=== PATIENT | female | born 2000 | race African-American/Black ===

== ENCOUNTER → 2024-08-20 08:12 | Outpatient (CLI) | payer OTHER, MEDICAID, SELFPAY ==
--- NOTE | 2024-08-20 08:13 | DI.US.S_ITS ---
PROCEDURE: US OB >= 14 WEEKS FETUS INDICATIONS: ANATOMY SCAN OUTSIDE/PRIOR DATING DATA: Last menstrual period (LMP): 03/19/2024. LMP-based estimated date of delivery (GERMAN): 12/24/2024. First dating scan (date and location): 06/08/2024. Estimated date of delivery (GERMAN) from first dating scan: 01/08/2025. The calculations are made using the sonographic GERMAN of 01/08/2025. TECHNIQUE: Real-time scanning was performed of the fetus, with image documentation and biometric measurements. Endovaginal scanning: Not performed COMPARISON: None. FINDINGS: General: A single living intrauterine gestation is present. Presentation: Breech. Placenta: Placental position is anterior , without previa. Amniotic fluid index: 18 cm, normal range is 5-24 cm. Single deepest vertical pocket is 5.8 cm. heart rate: 153 beats per minute. Maternal cervical canal: 4.8 cm long. Normal lower limit is 2.5 cm. biometrics: Biparietal diameter: 4.9 centimeters, 20 weeks 6 days Head circumference: 17.5 centimeters, 20 weeks 0 days Abdominal circumference: 16 centimeters, 21 weeks 0 days Femur length: 2.9 centimeters, 19 weeks 0 days Clinically estimated gestational age: 19 weeks 6 days Composite gestational age from present scan: 20 weeks 2 days Estimated weight and percentile: 333 grams, 61 percentile Anatomic survey: Neuro: Ventricles are non-dilated at less than 10 mm. Cisterna magna is normal at 3-11 mm. Cerebellum is normal in size and morphology. Nuchal skin fold: Normal at less than 6 mm between 14-21 weeks gestational age. Face: Nose and lips, facial profile are normal. Spine: Thoracic , lumbar and sacral spine not well visualized. Heart: 4-chambered heart is present, with normal ventricular outflow tracts. Diaphragm: Diaphragm is intact. Stomach: Left-sided stomach is present. Kidneys: Not well visualized. Cord: 3-vessel cord has orthotopic insertion. Bladder: Normal in size. Extremities: All 4 extremities identified. IMPRESSION: Single living intrauterine at 19 weeks 6 days, GERMAN of 01/08/2025. Estimated weight of 333 grams, 61 percentile. The thoracic through sacral spine and kidneys are not well demonstrated due to positioning. Short-term follow-up should be considered. Otherwise, normal anatomy survey. We strive to produce accurate, complete, and clear reports of imaging services. To assist us in improving patient care, this report was composed using standard report templates and voice recognition software. Therefore, it may contain abnormal punctuation, insertions and/or omissions. Occasional wrong-word or sound-alike substitutions may occur. Though we review the report and make efforts to correct it, we do recommend that the report be read carefully in proper context to recognize any text inaccuracies. Dictated by: Irineo Vargas M.D. on 08/20/2024 at 15:23 Approved by: Irineo Vargas M.D. on 08/20/2024 at 15:26
== END ==
PROVIDERS: Referring Provider Family Medicine; Visit Provider Family Medicine
DX: Z34.82 Encounter for supervision of other normal pregnancy, second trimester (principal); Z3A.19 19 weeks gestation of pregnancy
CPT/HCPCS: 76811

== ENCOUNTER → 2024-09-11 15:15 | Outpatient (CLI) | payer OTHER, MEDICAID, SELFPAY ==
--- NOTE | 2024-09-11 15:17 | DI.US.S_ITS ---
PROCEDURE: US OB LIMITED INDICATIONS: f/up to 08/20/24 ultrasound OUTSIDE/PRIOR DATING DATA: Last menstrual period (LMP): 03/19/2024. LMP-based estimated date of delivery (GERMAN): 12/24/2024 First dating scan (date and location): 06/08/2024. Estimated date of delivery (GERMAN) from first dating scan: 01/08/2025. The calculations are made using the working GERMAN of 01/08/2025. TECHNIQUE: Real-time scanning was performed of the fetus, with image documentation. Endovaginal scanning: No COMPARISON: None. FINDINGS: A single living intrauterine gestation is present. Presentation: Vertex. Placenta: Placental position is anterior, without previa. Amniotic fluid index: 14.0 cm, normal range is 5-24 cm. Single deepest vertical pocket is 5.0 cm. heart rate: 143 beats per minute. Maternal cervical canal: 3.4 cm long. Normal lower limit is 2.5 cm. Clinically estimated gestational age: 23 week 0 day spine and both kidneys are within normal limits IMPRESSION: Single live intrauterine consistent with 23 week 0 day gestation. spine bilateral kidneys well visualized and within normal limits. Completed anatomic survey. Approved by: Arnie Ramsey M.D. on 09/11/2024 at 19:06
== END ==
LOC: US 15:17
PROVIDERS: PCP Family Medicine; Referring Provider Family Medicine; Visit Provider Family Medicine
DX: Z34.82 Encounter for supervision of other normal pregnancy, second trimester (principal); Z3A.23 23 weeks gestation of pregnancy
CPT/HCPCS: 76815; 76817

== ENCOUNTER → 2024-10-16 11:15 | Outpatient (CLI) | payer OTHER, SELFPAY ==
[2024-10-16 12:37] LABS: Add Manual Diff / Slide Review NO; Basophils Absolute Auto 0 /uL (0-100); Basophils Percent Auto 0.5 % (0-2); Eosinophils Absolute Auto 100 /uL (0-450); Eosinophils Percent Auto 0.6 % (2-4); Hematocrit 34.9 % (36-46); Lymphocytes Absolute Auto 1200 /uL (1100-4500); Mean Corpuscular HGB Conc 34.4 % (30-36); Mean Corpuscular Hemoglobin 29.1 PG (26-34); Mean Corpuscular Volume 84.6 fL (80-100); Monocytes Absolute Auto 300 /uL (0-900); Neutrophils Absolute Auto 8300 /uL (1500-7000); Neutrophils Percent Auto 83.9 % (50-75); Platelet Count 254 X10^3/uL (150-400); Red Blood Cell Count 4.12 X10^6/uL (4.0-5.2); Red Cell Distribution Width 13.8 % (11.6-14.8); White Blood Cell Count 9.9 X10^3/uL (4.5-11.0)
[2024-10-16 13:02] LABS: GTT (PREG) 1 Hour PP 50gm Dose 122 mg/dL (76-139)
== END ==
LOC: LAB 11:17
PROVIDERS: PCP Family Medicine; Referring Provider Family Medicine; Visit Provider Family Medicine
DX: Z34.80 Encounter for supervision of other normal pregnancy, unspecified trimester (principal)
CPT/HCPCS: 36415; 82950; 85025

== ENCOUNTER → 2024-11-12 16:13 | Outpatient (CLI) | payer OTHER, SELFPAY ==
[2024-11-12 17:44] LABS: HEMOLYSIS < 15 (0-50); Iron 56 ug/dL (37-170)
[2024-11-12 17:58] LABS: Percent Iron Saturation 12 % (15-50); Total Iron Binding Capacity 470 ug/dL (265-497); Transferrin 473 mg/dL (206-381)
[2024-11-12 18:25] LABS: Ferritin 8 ng/mL (6-137)
== END ==
PROVIDERS: PCP Family Medicine; Referring Provider Family Medicine; Visit Provider Family Medicine
DX: Z34.80 Encounter for supervision of other normal pregnancy, unspecified trimester (principal); E61.1 Iron deficiency
CPT/HCPCS: 36415; 82728; 83540; 83550; 86850; 86900; 86901

== ENCOUNTER → 2024-12-17 16:00 | Outpatient (CLI) | payer OTHER, SELFPAY ==
[2024-12-19 10:07] LABS: Strep Grp B PCR NEG for Grp B Strep
== END ==
PROVIDERS: PCP Family Medicine; Visit Provider Family Medicine
DX: Z34.80 Encounter for supervision of other normal pregnancy, unspecified trimester (principal)
CPT/HCPCS: 87653

== ENCOUNTER 2025-01-03 15:22 | Inpatient (IN) | payer OTHER, SELFPAY ==
[2025-01-03 16:08] LABS: Add Manual Diff / Slide Review NO; Basophils Absolute Auto 100 /uL (0-100); Basophils Percent Auto 0.5 % (0-2); Eosinophils Absolute Auto 0 /uL (0-450); Eosinophils Percent Auto 0.1 % (2-4); Hematocrit 37.4 % (36-46); Hemoglobin 13.1 g/dL (12.0-16.0); Lymphocytes Absolute Auto 1300 /uL (1100-4500); Lymphocytes Percent Auto 11.2 % (25-40); Mean Corpuscular HGB Conc 34.9 % (30-36); Mean Corpuscular Hemoglobin 28.4 PG (26-34); Mean Corpuscular Volume 81.3 fL (80-100); Monocytes Absolute Auto 500 /uL (0-900); Monocytes Percent Auto 4.5 % (3-14); Neutrophils Absolute Auto 10100 /uL (1500-7000); Neutrophils Percent Auto 83.7 % (50-75); Platelet Count 274 X10^3/uL (150-400); Red Blood Cell Count 4.61 X10^6/uL (4.0-5.2); White Blood Cell Count 12.1 X10^3/uL (4.5-11.0)
[2025-01-03] MEDS: LACTATED RINGERS 1,000 ML 100 ML IV (16:57)
[2025-01-03 17:07] VITALS: BP 133/77
[2025-01-03] MEDS: ePHEDrine 50 MG/ML VIAL 10 MG IV (17:59)
--- NOTE | 2025-01-03 18:01 | P.HPOB_ITS ---
OB HPI Date/Time Date of admission: 01/03/25 History of Present Condition Chief complaint: contractions GERMAN Calculator 2 Estimated Delivery Date Method Current WG Current Estimate 01/08/25 Ultrasound #1 39w 2d Other Estimates 12/24/24 LMP (Uncertain) 41w 3d : 4 Para: 0 Narrative: 24 yo at 39w2d here with spontaneous labor. Uncomplicated . CFDNA low risk male. GBS negative. care: none Dating criteria OB: based on LMP only Ultrasounds: normal 1st trimester US and normal mid trimester US Obstetrical complications: none Medical complications OB: none Preadmission Labs Last OB Lab Results: 2 Blood Type B Positive 01/03/25 15:55 Antibody Screen Negative 01/03/25 15:55 Hct 37.4 % (36-46) 01/03/25 15:55 Hgb 13.1 g/dL (12.0-16.0) 01/03/25 15:55 Glucose 1 Hr 50 gm 122 mg/dL (76-139) 10/16/24 12:24 Group B Strep (PCR) Neg for grp b strep 12/17/24 15:40 Genetic Screens: Cell-free DNA: Normal Prior (ies) Past Pregnancies Del. Date GA/Weeks Labor Lgth Wt Sex Route Outcome Anesthesia Place Delv Breastfeed Preg Comp Name 07/31/17 ~6 elective 10/01/18 ~6 elective 10/01/21 ~6 elective Delivery Date: 07/31/17 Last Updated by: Qian Lu RN Rx only, no complications Delivery Date: 10/01/18 Last Updated by: Qian Lu RN Rx only, no complications Delivery Date: 10/01/21 Last Updated by: Qian Lu RN Rx only, no complications Evaluation Evaluation Variability: Average (6-10) monitor accelerations: Present Monitor Decelerations: Absent Contraction Frequency (minutes): 145 Uterine Contraction Intensity: Moderate Category of Tracing: Reactive Status: Category l Dilation (cm): 6 PFSH Surgical History (Updated 07/03/24 @ 15:44 by Qian Lu RN) History of tonsillectomy Family History (Updated 07/03/24 @ 15:49 by Qian Lu RN) Grandmother Diabetes mellitus Father Drug abuse Heart attack Social History marital status: unmarried,single number of children: 0 household members: family lives independently: Yes caregiver/support person: No housing: house pets and animals: Yes (dogs) education level: college occupational status: employed current occupational exposures/hazards: No special [place] needs: No travel history: over 6 months ago seatbelt use: always water heater temp set < 120 deg: Yes working smoke detector in home: Yes fire extinguisher in home: Yes carbon monox detector in home: Yes firearms in home: No do you feel safe at home: Yes Smoking Status: Never smoker second hand exposure: No alcohol intake: former substance use type: does not use during the past year weight has: remained stable well-balanced diet: rarely or never daily servings fruits/ve-1 caffeine: Yes (single AM cup coffee) Type(s) of exercise: walking Meds Home Medications and Allergies Home Medications Medication Instructions Recorded Confirmed Type vitamin-ferrous sulfate See Rx Instructions .Route .COMPLEX 07/03/24 01/03/25 History 27 mg iron-folic acid 0.8 mg tablet Double Electric Breast Pump and #1 ea 10/15/24 01/03/25 Rx Supplies Allergies Allergy/AdvReac Type Severity Reaction Status Date / Time No Known Drug Allergies Allergy Verified 12/31/24 16:12 Objective Labs 01/03/25 15:55 Labs: Laboratory Results - last 24 hr 01/03/25 15:55 WBC 12.1 H RBC 4.61 Hgb 13.1 Hct 37.4 MCV 81.3 MCH 28.4 MCHC 34.9 RDW 14.0 Plt Count 274 Neut % (Auto) 83.7 H Lymph % (Auto) 11.2 L [place] % (Auto) 4.5 Eos % (Auto) 0.1 L Baso % (Auto) 0.5 Neut # (Auto) 55838 H Lymph # (Auto) 1300 [place] # (Auto) 500 Eos # (Auto) 0 Baso # (Auto) 100 Blood Type B Positive Antibody Screen Negative Assessment and Plan Assessment and Plan Assessment and Plan narrative: 24 yo at 39w2d here with spontaneous labor. Uncomplicated . GBS neg. -anticipate vaginal delivery Time-Based Coding :: 30 minutes spent with patient and on the chart (including review of chart, obtaining history, exam, reviewing outside data, placing orders, documenting exam and treatment plan, and counseling patient) on 01/03/2025.
--- NOTE | 2025-01-03 18:17 | PM.AN.REGBLK ---
Regional Block Pre-procedure Procedure: Continuous Lumbar Epidural for L&D (with dural puncture) Attending OB provider: Camille Boyce PMH/ROS narrative: 24yo female in labor requesting epidural. See pre-anesthesia evaluation for further details. ASA Class: II Labs: Hct 37.4 % (36-46) 01/03/25 15:55 Plt Count 274 X10^3/uL (150-400) 01/03/25 15:55 Medications: Current Medications Generic Name Dose Route Start Last Admin Trade Name Freq PRN Reason Stop Dose Admin Calcium Carbonate 1,000 mg 01/03/25 15:51 Calcium Carbonate 500 Mg Tab PO Q2HR PRN Dyspepsia Carboprost Tromethamine 250 mcg 01/03/25 15:51 Carboprost 250 Mcg/Ml Ampul IM Q90M PRN Bleeding Oxytocin/Lactated Ringer's 30 unit in 500 mls @ 200 mls/hr 01/03/25 15:51 Oxytocin Premix IV CONT PRN Bleeding Protocol Tranexamic Acid 1,000 mg/ 100 mls @ 600 mls/hr 01/03/25 15:51 Sodium Chloride IV NOW PRN Bleeding Oxytocin/Lactated Ringer's 30 unit in 500 mls @ 2 mls/hr 01/03/25 16:00 Oxytocin Premix IV TITRATE LILIBETH Protocol 2 MILLIUNIT/MIN Lactated Ringer's 1,000 mls @ 100 mls/hr 01/03/25 16:00 01/03/25 16:57 Lactated Ringers IV 01/04/25 01:59 100 mls/hr CONT LILIBETH Administration Lidocaine HCl 20 ml 01/03/25 15:51 Lidocaine 1% 20 Ml INJ INTRA-OP PRN Post Delivery Methylergonovine Maleate 0.2 mg 01/03/25 15:51 Methylergonovine 0.2 Mg Tablet PO Q6HR PRN Heavy Bleeding Methylergonovine Maleate 0.2 mg 01/03/25 15:51 Methylergonovine 0.2 Mg/Ml Vial IM NOW PRN Bleeding Mineral Oil 30 ml 01/03/25 15:51 Mineral Oil 30 Ml Udc TOP PRN PRN Version Misoprostol 800 mcg 01/03/25 15:51 Misoprostol 200 Mcg Tablet MO NOW PRN Bleeding Misoprostol 400 mcg 01/03/25 15:51 Misoprostol 200 Mcg Tablet SL NOW PRN Bleeding Naloxone HCl 0.2 mg 01/03/25 15:51 Naloxone 0.4 Mg/Ml Vial IV Q2MIN PRN Opiate Reversal Ondansetron HCl 4 mg 01/03/25 15:51 Ondansetron 4 Mg/2 Ml Inj IV Q4HR PRN Nausea And Vomiting Oxytocin 10 unit 01/03/25 15:51 Oxytocin 10 Unit/Ml Vial IM NOW PRN Bleeding Allergies: Allergies Allergy/AdvReac Type Severity Reaction Status Date / Time No Known Drug Allergies Allergy Verified 12/31/24 16:12 Procedure Insertion date: 01/03/25 Insertion time: 17:49 Prep/Local: 1% lidocaine (Chloraprep) Interspace: L4-5 Patient position: sitting Needle: 18 gauge Graphite Systemstead (27g 5 Pencan needle for dural puncture) Loss of resistance with: saline HAYLEY at (cm): 6 Catheter placed at SKIN (cm): 13 Catheter in SPACE (cm): 7 Insertion: No CSF, No Blood, No Paresthesia with insertion, No Paresthesia with injection and No Test dose reaction Initial Medications TEST DOSE time: 17:50 TEST DOSE: 1.5% lidocaine with epinephrine 1:200k (mL): 3 BOLUS DOSE time: 17:51 BOLUS DOSE (mL): 2 BOLUS DOSE med: other (Same as test dose) Infusion INFUSION: 0.125% bupivacaine and with fentanyl 2 mcg/mL Initial rate (mL/hr): 8 Subsequent interventions: Pt was very sensitive to needles and uncomfortable and tilting sideways with contractions; required attempts at L3-4, multiple repositionings and additional lidocaine, and then successful attempt at L4-5. Infusion started at 18:05. Pt reported she was not feeling contractions at all; able to move BLE. Post-procedure Anesthesia date START: 01/03/25 Anesthesia time START: 17:26 Anesthesia date END: 01/03/25 Anesthesia time END: 22:51 Post-procedure Anesthesia Assessment: Yes CV function: HR/BP stable, Yes Resp function: RR/sat/airway adequate, Yes Post-op hydration adequate, Yes Pain control adequate, Yes Nausea & vomiting absent, Yes Temperature > 36 C, Yes Mental status appropriate and No Anesthesia complications
[2025-01-03] MEDS: ONDANSETRON 4 MG/2 ML INJ IV (21:56)
--- NOTE | 2025-01-03 23:03 | PM.OBPRVD ---
Labor & Delivery Delivery date: 01/03/25 Delivery Time: 22:51 Intrapartal Events: Deceleration Cervical ripening method: none Induction method: none Delivery augmentation: rupture of membranes Delivery monitor: external FHT Route of delivery: L&D Laceration Description: Periurethral - 1st Degree Estimated blood loss (mL): 200 Anesthesia Type: Epidural Narrative: This is a 24 yo G4 now P1 at 39w2d who presented in spontaneous labor. She progressed to complete with AROM. She had epidural in place. With initial pushing effort there variable decelerations down to the 70s that resolved with position changes. Good recovery. Patient pushed for just over 20 minutes. Delivery in OA position of a vigorous male . Cord was clamped and cut by father at 2 minutes of life. Placenta delivered with gentle traction. Uterine tone firm with external massage. Bleeding minimal. Bilateral first degree periurethral lacerations that are hemostatic so no suture repair needed. Mom and baby are recovering well. Plan for aftercare: Routine care
[2025-01-04] MEDS: ACETAMINOPHEN 325 MG TABLET 650 MG PO ×3 (00:05→17:51)
[2025-01-04] MEDS: KETOROLAC 30 MG/ML VIAL IV (00:06)
[2025-01-04] MEDS: DOCUSATE 100 MG CAPSULE PO (09:20)
[2025-01-04] MEDS: PRENATAL VIT,CALC/IRON/FOLIC 1 TABLET 1 TAB PO (09:20)
--- NOTE | 2025-01-04 09:38 | PM.OBDS.1 ---
Discharge Providers Provider Date of admission: 01/03/25 15:22 Discharge Date: 01/04/25 Primary care physician: Camille Boyce MD Consults: 01/03/25 15:51 Consult to Anesthesiology Urgent Comment: Consulting Provider: Anesthesiologist Reason for consultation: Epidural 01/04/25 23:01 Consult to Supervisor [employer] Routine Comment: Discharge provider: Nisha Gale MD Summary Hospital Course Date Patient Seen: 01/04/25 Time Patient Seen: 09:15 Diagnoses: Term Hospital Course: This is a 24 yo G4 now P1 s/p at 39w2d. She was admitted in active labor and progressed without intervention except for AROM. She had epidural for pain control. Strip was cat 2 for decelerations during pushing only. Labor and delivery was otherwise uncomplicated. She recovered well . Bleeding like a menstrual cycle. well. Ambulating without difficulty. Peripartum Data Delivery Method: Natural Vaginal Laceration Description: Periurethral - 1st Degree complications: none Status at Discharge Cognitive/behavioral status at discharge: oriented Functional status at discharge: independent ambulation Overall status at discharge: patient is back to baseline Time Spent with Patient Time attestation: Total time spent providing and/or coordinating discharge services: 30 min Time spent: Greater than 30 minutes Objective Labs 01/03/25 15:55 Labs: Laboratory Results - last 24 hr 01/03/25 15:55 WBC 12.1 H RBC 4.61 Hgb 13.1 Hct 37.4 MCV 81.3 MCH 28.4 MCHC 34.9 RDW 14.0 Plt Count 274 Neut % (Auto) 83.7 H Lymph % (Auto) 11.2 L [place] % (Auto) 4.5 Eos % (Auto) 0.1 L Baso % (Auto) 0.5 Neut # (Auto) 54471 H Lymph # (Auto) 1300 [place] # (Auto) 500 Eos # (Auto) 0 Baso # (Auto) 100 Blood Type B Positive Antibody Screen Negative Exam Narrative Exam Narrative: NAD, resting comfortably in bed Discharge Plan Discharge Plan Patient Disposition: Home Discharge orders & Medications Prescriptions: New acetaminophen 325 mg Tablet 650 mg PO Q6HR PRN (Reason: Pain, Mild (1-3)) 7 Days Qty: 60 0RF docusate sodium 100 mg Capsule 100 mg PO BID 30 Days Qty: 60 0RF ibuprofen 600 mg Tablet 600 mg PO Q6HR PRN (Reason: Pain, Mild (1-3)) 60 Days Qty: 60 0RF Continued vit-ferrous sulfat-FA 27 mg iron- 0.8 mg tablet See Rx Instructions .ROUTE .COMPLEX Rx Instructions: Per MD order No Action (DME) Double Electric Breast Pump and Supplies See Rx Instructions .ROUTE .MEDSUPPLY Qty: 1 0RF Rx Instructions: As directed Follow up/Referrals: Camille Boyce MD [Primary Care Provider] - Visit Report/Discharge Packet Stand Alone Forms: Patient Portal/API, Stroke Signs & Symptoms Discharge Data Primary Care Provider: Camille Boyce
[2025-01-04] MEDS: IBUPROFEN 600 MG TABLET PO (17:51)
[2025-01-04 18:39] VITALS: BP 111/69; PULSE 79; RESP 15; TEMP 36.5
== END 2025-01-04 18:30 | disposition home or self-care (01) | DRG 560 ==
PROVIDERS: Obstetrics & Gynecology; Admitting Provider Family Medicine; PCP Family Medicine; Referring Provider Family Medicine; Visit Provider Family Medicine
DX: O76 Abnormality in fetal heart rate and rhythm complicating labor and delivery (principal); Z37.0 Single live birth; Z3A.39 39 weeks gestation of pregnancy
CPT/HCPCS: 36415; 59050; 59400; 59409; 85025; 86850; 86900; 86901; G0379; J1885; J2405

== ENCOUNTER 2025-01-06 22:16 | Emergency (ER) | payer OTHER, SELFPAY ==
[2025-01-06 22:20] VITALS: BP 129/76; PULSE 82; RESP 16; TEMP 37.2; O2SAT 97; BMI 27.3
--- NOTE | 2025-01-07 00:03 | ED.HA ---
HPI - Headache General Chief Complaint: Headache Stated Complaint: migraine after giving 2 days ago Time Seen by Provider: 01/07/25 00:03 Mode of arrival: Ambulatory History of Present Illness HPI Narrative: 24-year-old female no significant past medical history comes in for headache. She states that she did give 3 days ago, did have an epidural at that time, states that she did go home 2 days ago and still has a headache, she states that it is the exact same as when she was discharged, she states that lying down does make little better, she denies any visual disturbances denies any other symptoms such as chest pain shortness breath fever chills nausea vomiting abdominal pain or any other GI/ symptoms time. Patient does state that when she had her epidural they had to ?go in and out of her spine 3 times Related Data Home Medications Medication Instructions Recorded Confirmed vitamin-ferrous sulfate See Rx Instructions .Route .COMPLEX 07/03/24 01/03/25 27 mg iron-folic acid 0.8 mg tablet Previous Rx's Medication Instructions Recorded Double Electric Breast Pump and #1 ea 10/15/24 Supplies acetaminophen 325 mg tablet 650 mg (2 x 325 mg) PO Q6HR PRN 01/04/25 Pain, Mild (1-3) 7 days #60 tabs docusate sodium 100 mg capsule 100 mg PO BID 30 days #60 caps 01/04/25 ibuprofen 600 mg tablet 600 mg PO Q6HR PRN Pain, Mild 01/04/25 (1-3) 60 days #60 tabs Allergies Allergy/AdvReac Type Severity Reaction Status Date / Time No Known Drug Allergies Allergy Verified 12/31/24 16:12 Review of Systems Review of Systems Narrative: General: Denies fever, chills, weight loss HEENT: Positive headache, denies eye drainage, eye irritation, head trauma, sore throat, voice change Cardiovascular: Denies any chest pain, palpitations, tachycardia Respiratory: Denies any shortness of breath, cough, wheeze, stridor GI/: Denies any abdominal pain, nausea, vomiting, diarrhea, bright red blood per rectum, melanotic stools, urinary frequency, urinary retention, dysuria, hematuria MSK: Denies any joint pain, muscle pains, swelling Skin: Denies any rashes, lesions, discoloration Neuro: Denies any headache, lightheadedness, dizziness, fainting, weakness Psych: Denies SI/HI Patient History Surgical History (Updated 07/03/24 @ 15:44 by Qian Lu RN) History of tonsillectomy Family History (Updated 07/03/24 @ 15:49 by Qian Lu RN) Grandmother Diabetes mellitus Father Drug abuse Heart attack Social History marital status: unmarried,single number of children: 0 household members: family lives independently: Yes caregiver/support person: No housing: house pets and animals: Yes (dogs) education level: college occupational status: employed current occupational exposures/hazards: No special [place] needs: No travel history: over 6 months ago seatbelt use: always water heater temp set < 120 deg: Yes working smoke detector in home: Yes fire extinguisher in home: Yes carbon monox detector in home: Yes firearms in home: No do you feel safe at home: Yes second hand exposure: No alcohol intake: former substance use type: does not use during the past year weight has: remained stable well-balanced diet: rarely or never daily servings fruits/ve-1 caffeine: Yes (single AM cup coffee) Type(s) of exercise: walking Exam Narrative Exam Narrative: General: Cooperative, well-developed, not in acute distress HEENT: Normocephalic, atraumatic, PERRLA, normal sclera, eyelids normal Neck: Active full range of motion, atraumatic Chest: Normal to inspection, negative crepitus, no overlying erythema ecchymosis Respiratory: Normal respiratory effort, not in acute respiratory distress, clear to auscultation bilaterally negative cough, wheeze, tachypnea, rhonchi, rales Cardiology: Regular rate rhythm negative gallop, murmur, rubs GI/: No tenderness to palpation, soft, non rigid, normal to inspection, exam deferred MSK: Full active range of motion in all 4 extremities, atraumatic, no tenderness to palpation of any bony prominences Skin: No rashes or lesions noted, no overlying erythema ecchymosis gross deformity to the spine where patient had epidural Neuro: Alert awake oriented x3, moves all 4 extremities spontaneously, cranial nerves intact, able to answer all questions appropriately follows commands appropriately Psych: Cooperative, negative suicidal or homicidal ideations Initial Vital Signs Initial Vital Signs: Vital Signs Temperature 99.0 F 01/06/25 22:20 Pulse Rate 82 01/06/25 22:20 Respiratory Rate 16 01/06/25 22:20 Blood Pressure 129/76 01/06/25 22:20 Pulse Oximetry 97 01/06/25 22:20 Oxygen Delivery Method Room Air 01/06/25 22:20 Course Orders Ordered: ED Orders 01/07/25 00:14 BMP [Basic Metabolic Panel] Stat CBC Auto Diff [Complete Blood Count AUTO DIFF] Stat Discontinued Medications Dexamethasone (Dexamethasone 10 Mg/Ml Vial) 10 mg IV NOW ONE Stop: 01/07/25 00:05 Last Admin: 01/07/25 00:28 Dose: 10 mg Documented By: SIMONA Diphenhydramine HCl (Diphenhydramine 50 Mg/Ml Vial) 25 mg IV NOW ONE Stop: 01/07/25 00:05 Last Admin: 01/07/25 00:23 Dose: 25 mg Documented By: SIMONA Magnesium Sulfate (Magnesium Sulfate) 2 gm in 50 mls @ 150 mls/hr IV NOW ONE Stop: 01/07/25 00:23 Last Infusion: 01/07/25 01:00 Dose: Infused Documented By: JANET Co-signed By: SIMONA Admin: 01/07/25 00:30 Dose: 150 mls/hr Documented By: SIMONA Co-signed By: HUMBERTO Sodium Chloride (Normal Saline 0.9%) 1,000 mls @ 1,000 mls/hr IV BOLUS ONE Stop: 01/07/25 01:03 Last Infusion: 01/07/25 01:05 Dose: Infused Documented By: Admin: 01/07/25 00:20 Dose: 1,000 mls/hr Documented By: SIMONA Metoclopramide HCl (Metoclopramide 10 Mg/2 Ml Inj) 10 mg IV NOW ONE Stop: 01/07/25 00:05 Last Admin: 01/07/25 00:25 Dose: 10 mg Documented By: SIMONA Vital Signs Vital signs: Vital Signs - 8 hr 01/06/25 22:20 01/07/25 00:04 01/07/25 00:22 Temperature 99.0 F Pulse Rate 82 77 Respiratory Rate 16 Blood Pressure 129/76 131/82 Pulse Oximetry 97 97 Oxygen Delivery Method Room Air 01/07/25 00:22 01/07/25 00:30 01/07/25 00:30 Temperature Pulse Rate 75 80 Respiratory Rate Blood Pressure 133/83 Pulse Oximetry 97 98 Oxygen Delivery Method MDM - Headache Differential Diagnosis Differential diagnosis: Likely migraine, tension headache and other (Electrolyte abnormality, postdural headache) Lab Data 01/07/25 00:14 01/07/25 00:14 Labs: Lab Results 01/07/25 Range/Units 00:14 WBC 15.0 H (4.5-11.0) X10^3/uL RBC 4.51 (4.0-5.2) X10^6/uL Hgb 12.5 (12.0-16.0) g/dL Hct 37.2 (36-46) % MCV 82.6 (80-100) fL MCH 27.7 (26-34) PG MCHC 33.6 (30-36) % RDW 13.8 (11.6-14.8) % Plt Count 283 (150-400) X10^3/uL Neut % (Auto) 89.6 H (50-75) % Lymph % (Auto) 6.6 L (25-40) % Lipscomb % (Auto) 2.8 L (3-14) % Eos % (Auto) 0.5 L (2-4) % Baso % (Auto) 0.5 (0-2) % Neut # (Auto) 31147 H (6869-6639) /uL Lymph # (Auto) 1000 L (2633-5033) /uL Lipscomb # (Auto) 400 (0-900) /uL Eos # (Auto) 100 (0-450) /uL Baso # (Auto) 100 (0-100) /uL Sodium 137 (137-145) mmol/L Potassium 3.5 (3.4-5.1) mmol/L Chloride 108 H (98-107) mmol/L Carbon Dioxide 21 L (22-32) mmol/L BUN 7 (7-17) mg/dL Creatinine 0.59 (0.52-1.04) mg/dL Estimated GFR > 60 (>60) mL/min BUN/Creatinine Ratio 11.9 (6-22) Glucose 100 (70-100) mg/dL Calcium 8.9 (8.4-10.2) mg/dL [facility] Narrative Medical decision making narrative: 24-year-old female without any significant past medical history presents for headache, to note patient had gave vaginally here 3 days ago, she states that she had an epidural that required ?insertion of the needle 3 time she states that when she was discharged she was having a dull headache still. She states that it is better with lying down, worse with sitting up or moving. But she denies any visual disturbances or any other symptoms. Patient had fluids, Reglan, Benadryl, Decadron, magnesium here in the emergency department, lab work performed. Patient with mild leukocytosis most likely elevated secondary to patient day 3, had significant relief of her symptoms after administration of medication here. On exam there is no signs of cellulitis to the lumbar area where epidural was performed, symptoms more likely post dural headache, informed patient to follow up with her OBGYN and to reach out to the anesthesiologist to possibly schedule an outpatient blood patch procedure. She was given strict return precautions she verbalized understanding of this and agrees to being discharged home with outpatient follow up Discharge Plan Departure Patient Disposition: Home Clinical Impression: Post-dural puncture headache Activity Restrictions/Additional Instructions: Please follow up with your primary care doctor and your OBGYN to try to schedule a blood patch outpatient for your posterior headache You can continue to take Tylenol for your headache, you can also try adding caffeine to help with the symptoms. Please read the discharge instructions sheet carefully and bring all papers to all doctor follow-up visits, as it may contain information that your doctor may want to see. Disease processes change and evolve, if your symptoms worsen or if you develop any new symptoms that are concerning to you please return for evaluation. Your evaluation today does not show any evidence of any life-threatening/serious illnesses requiring admission to the hospital or surgery. Please follow-up with your doctor for re-evaluation in approximately 1 day. Seek immediate medical attention for any worrisome symptoms. *If you do not have a primary care provider please contact the [facility] Resource line at [phone]. They will ask some questions about your medical history and help get you set up with a doctor in the community. Prescriptions: No Action (DME) Double Electric Breast Pump and Supplies See Rx Instructions .ROUTE .MEDSUPPLY Qty: 1 0RF Rx Instructions: As directed vit-ferrous sulfat-FA 27 mg iron- 0.8 mg tablet See Rx Instructions .ROUTE .COMPLEX Rx Instructions: Per MD order acetaminophen 325 mg Tablet 650 mg PO Q6HR PRN (Reason: Pain, Mild (1-3)) 7 Days Qty: 60 0RF docusate sodium 100 mg Capsule 100 mg PO BID 30 Days Qty: 60 0RF ibuprofen 600 mg Tablet 600 mg PO Q6HR PRN (Reason: Pain, Mild (1-3)) 60 Days Qty: 60 0RF Referrals: Camille Boyce MD [Primary Care Provider] - Stand Alone Forms: Patient Portal/API/Survey
[2025-01-07 00:04] VITALS: PULSE 77; O2SAT 97
[2025-01-07] MEDS: SODIUM CHLORIDE 0.9% 1,000 ML 1000 ML IV (00:20)
[2025-01-07 00:22] VITALS: BP 131/82; PULSE 75; O2SAT 97
[2025-01-07] MEDS: diphenhydrAMINE 50 MG/ML VIAL 25 MG IV (00:23)
[2025-01-07] MEDS: METOCLOPRAMIDE 10 MG/2 ML INJ IV (00:25)
[2025-01-07 00:27] LABS: Add Manual Diff / Slide Review NO; Basophils Absolute Auto 100 /uL (0-100); Basophils Percent Auto 0.5 % (0-2); Eosinophils Absolute Auto 100 /uL (0-450); Eosinophils Percent Auto 0.5 % (2-4); Hematocrit 37.2 % (36-46); Hemoglobin 12.5 g/dL (12.0-16.0); Lymphocytes Absolute Auto 1000 /uL (1100-4500); Lymphocytes Percent Auto 6.6 % (25-40); Mean Corpuscular HGB Conc 33.6 % (30-36); Mean Corpuscular Hemoglobin 27.7 PG (26-34); Mean Corpuscular Volume 82.6 fL (80-100); Monocytes Absolute Auto 400 /uL (0-900); Monocytes Percent Auto 2.8 % (3-14); Neutrophils Absolute Auto 13500 /uL (1500-7000); Neutrophils Percent Auto 89.6 % (50-75); Platelet Count 283 X10^3/uL (150-400); Red Blood Cell Count 4.51 X10^6/uL (4.0-5.2); Red Cell Distribution Width 13.8 % (11.6-14.8)
[2025-01-07] MEDS: DEXAMETHASONE 10 MG/ML VIAL IV (00:28)
[2025-01-07 00:30] VITALS: BP 133/83; PULSE 80; O2SAT 98
[2025-01-07] MEDS: MAGNESIUM SULFATE 2 GM/50 ML PIGGYBACK IV (00:30)
[2025-01-07 00:40] LABS: BUN Creatinine Ratio 11.9 (6-22); Blood Urea Nitrogen 7 mg/dL (7-17); Calcium 8.9 mg/dL (8.4-10.2); Carbon Dioxide 21 mmol/L (22-32); Chloride 108 mmol/L (98-107); Estimated Glomerular Filt Rate > 60 mL/min (>60); Glucose 100 mg/dL (70-100); HEMOLYSIS < 15 (0-50); Potassium 3.5 mmol/L (3.4-5.1); Sodium 137 mmol/L (137-145)
[2025-01-07 01:31] VITALS: BP 118/67; PULSE 68; RESP 18; O2SAT 96
== END 2025-01-07 01:41 | disposition home or self-care (01) ==
PROVIDERS: Emergency Provider Student in an Organized Health Care Education/Training Program; PCP Family Medicine
DX: G97.1 Other reaction to spinal and lumbar puncture (principal); R51.9 Headache, unspecified
CPT/HCPCS: 36415; 80048; 85025; 96365; 96375; 99284; J1100; J1200; J2765; J3475

== ENCOUNTER 2025-01-07 11:21 | Day surgery (SDC) | payer OTHER, SELFPAY ==
[2025-01-07 11:48] VITALS: BP 121/80; PULSE 74; RESP 16; TEMP 36.9; O2SAT 98
[2025-01-07] MEDS: LACTATED RINGERS 1,000 ML 42 ML IV (11:52)
[2025-01-07] MEDS: MIDAZOLAM 2 MG/2 ML VIAL 1 MG IV ×2 (12:08→12:14)
--- NOTE | 2025-01-07 12:10 | SUR.PREOP ---
Blood patch started with a time out at 1209. Dr. Ponce and Steve Farley, DISPATCHER REFINERY present. Verset 1 mg given. O2 sat monitor in place.
--- NOTE | 2025-01-07 12:24 | SUR.PREOP ---
Procedure ended 1220. Patient placed lying supine, abdominal binder placed per Ramon Farley CRNA. VS stable, continuous monitor in place. PO intake provided. Call light within reach.
[2025-01-07 12:30] VITALS: BP 129/98
--- NOTE | 2025-01-07 12:35 | PM.AN.REGBLK ---
Regional Block Pre-procedure Procedure: Continuous Epidural for Post-operative Pain Management (Epidural blood patch) PMH/ROS narrative: 24yo female post- day #4 presents with symptoms consistent with PDPH. Difficult epidural placement with planned dural puncture done by me. Pt was comfortable the remainder of her labor and said she had only a mild GOYAL at discharge. Headache worsened over next two days, and she presented to ED overnight last night and to PCP this morning in clinic. ASA Class: II Medications: Current Medications Generic Name Dose Route Start Last Admin Trade Name Freq PRN Reason Stop Dose Admin Lactated Ringer's 1,000 mls @ 42 mls/hr 01/07/25 11:52 01/07/25 11:52 Lactated Ringers IV 01/08/25 11:40 42 mls/hr NOW ONE Administration Allergies: Allergies Allergy/AdvReac Type Severity Reaction Status Date / Time No Known Drug Allergies Allergy Verified 01/07/25 11:45 Procedure Insertion date: 01/07/25 Insertion time: 12:16 Prep/Local: 1% lidocaine (8 ml plus Chloraprep) Interspace: L3-4 Patient position: sitting Needle: 17 gauge Tuohy Loss of resistance with: saline HAYLEY at (cm): 5 Insertion: No CSF, No Blood, No Paresthesia with insertion, No Paresthesia with injection and No Test dose reaction Infusion Subsequent interventions: Epidural blood patch: Sterilely, blood drawn from PIV by Steve Farley CRNA and handed to me. I sterilely injected total of 14 ml of blood in divided doses, until pt complained of increasing back pressure. Pt admitted I hate needles. She tolerated procedure well with Versed 2 mg IV in divided doses. Placed supine after procedure. Post-procedure Anesthesia date START: 01/07/25 Anesthesia time START: 12:09 Anesthesia date END: 01/07/25 Anesthesia time END: 12:21 Post-procedure Anesthesia Assessment: Yes CV function: HR/BP stable, Yes Resp function: RR/sat/airway adequate, Yes Post-op hydration adequate, Yes Pain control adequate, Yes Nausea & vomiting absent, Yes Temperature > 36 C, Yes Mental status appropriate and No Anesthesia complications
[2025-01-07 13:00] VITALS: BP 134/90; O2SAT 94
[2025-01-07 13:15] VITALS: BP 130/85
[2025-01-07 13:30] VITALS: BP 130/89; PULSE 73; O2SAT 95
[2025-01-07 13:41] VITALS: BP 111/78; PULSE 76
--- NOTE | 2025-01-07 14:11 | SUR.PHASEII ---
Patient reported headache resolved, back pain 2-3/10. Back dressing CDI, abd binder in place.
== END 2025-01-07 13:47 | disposition home or self-care (01) ==
PROVIDERS: PCP Family Medicine; Referring Provider Nurse Anesthetist, Certified Registered; Visit Provider Nurse Anesthetist, Certified Registered
PROC: 3E0R3GC Introduction of Other Therapeutic Substance into Spinal Canal, Percutaneous Approach (ICD-10-PCS; CPT 62273; principal; 2025-01-07 11:30)
DX: G97.1 Other reaction to spinal and lumbar puncture (principal)
CPT/HCPCS: 62273; J2250